=== PATIENT | male | born 1995 | race Caucasian/White ===

== ENCOUNTER 2018-07-27 12:16 | Emergency (ER) | payer BC ==
[~2018-07-27] VITALS: Ht 182.9 cm; Wt 80.9 kg
[2018-07-27 12:34] VITALS: Ht 182.9 cm; Wt 80.9 kg
[2018-07-27] MEDS ORDERED: LIBRIUM 10 MG C10 MG PO (12:35)
[2018-07-27] MEDS ORDERED: TORADOL10 MG PO (15:57)
[2018-07-27 19:06] VITALS: BP 131/91
== END 2018-07-27 19:06 | disposition home or self-care (01) ==
LOC: D.ER 12:16
DX: S61.311A Laceration without foreign body of left index finger with damage to nail, initial encounter (principal); W27.8XXA Contact with other nonpowered hand tool, initial encounter; Y93.89 Activity, other specified; Y92.019 Unspecified place in single-family (private) house as the place of occurrence of the external cause